=== PATIENT | female | born 1985 | race Two or more races ===

== ENCOUNTER → 2017-04-02 | Emergency (ER) | payer OTHER ==
[~2017-04-02] VITALS: Ht 154.9 cm; Wt 54.4 kg
[~2017-04-02] MED LIST: AMOX1TAB12 PO; KETO10TA2 PO; TUSSIONEX PENN115 ML PO; ZITHROMAX500 MG PO
== END | disposition home or self-care (01) ==
LOC: ER 08:09
DX: R05 Cough (principal)

== ENCOUNTER 2017-07-07 17:34 | Emergency (ER) | payer OTHER ==
[~2017-07-07] VITALS: Ht 154.9 cm; Wt 56.7 kg
== END 2017-07-07 21:07 | disposition home or self-care (01) ==
LOC: ER 17:34
DX: M54.2 Cervicalgia (principal); M75.51 Bursitis of right shoulder

== ENCOUNTER 2017-08-26 14:48 | Emergency (ER) | payer OTHER ==
[~2017-08-26] VITALS: Ht 154.9 cm; Wt 56.7 kg
== END 2017-08-26 22:03 | disposition home or self-care (01) ==
LOC: ER 14:48
DX: N83.291 Other ovarian cyst, right side (principal); R10.813 Right lower quadrant abdominal tenderness

== ENCOUNTER 2018-07-15 08:27 | Outpatient (CLI) | payer OTHER | END 2018-07-15 08:33 | disposition home or self-care (01) | LOC: RAD 08:27 | DX: J84.111 Idiopathic interstitial pneumonia, not otherwise specified (principal) ==

== ENCOUNTER 2018-11-30 08:45 | Outpatient (CLI) | payer OTHER | END 2018-11-30 08:49 | disposition home or self-care (01) | LOC: SONOGRAMA 08:45 → RAD 08:45 → SONOGRAMA 08:49 | DX: M75.81 Other shoulder lesions, right shoulder (principal) ==

== ENCOUNTER → 2022-01-23 | Emergency (ER) | payer OTHER ==
[~2022-01-23] VITALS: Ht 154.9 cm; Wt 54.4 kg
== END | disposition home or self-care (01) ==
LOC: ER 08:02
DX: U07.1 COVID-19 (principal); B34.9 Viral infection, unspecified

== ENCOUNTER 2023-10-16 19:09 | Emergency (ER) | payer OTHER ==
[~2023-10-16] VITALS: Ht 154.9 cm; Wt 52.6 kg
[2023-10-16] MEDS ORDERED: KETOROLAC TROMETHAMINE 30 MG VIAL IV ONE (19:45)
[2023-10-16] MEDS ORDERED: 0.9 % SODIUM CHLORIDE 500 ML IV ONE (19:45)
[2023-10-16] MEDS ORDERED: PROPOFOL 10,000 MCG/ML VIAL IV PUSH ONE (21:15)
[2023-10-16 22:00] LABS: HEMATOCRIT 38.2 % (36.0-45.00); HEMOGLOBIN 12.8 g/dL (12.0-15.00); MEAN CELL VOLUME 79.8 fL (80.00-100.00); MEAN CORPUSCULAR HEMOGLOBIN 26.7 pg (27.00-32.0); MEAN CORPUSCULAR HGB CONC 33.4 g/dl (32.0-36.0); PLATELET COUNT 235 K/uL (150-450); RED BLOOD COUNT 4.79 M/uL (4.00-6.00); RED CELL DISTRIBUTION WIDTH 14.5 % (11.5-14.5)
[2023-10-16 22:24] LABS: INR 1.01; PARTIAL THROMBOPLASTIN TIME 25.9 SECONDS (22.0-34.0); PROTHROMBIN TIME 10.6 SECONDS (9.0-11.5)
[2023-10-16 22:29] LABS: ALBUMIN 4.2 gm/dL (3.4-5.0); BILIRUBIN TOTAL 0.77 mg/dL (0.3-1.2); CALCIUM 9.2 mg/dL (8.5-10.1); CREATININE SERUM 0.74 mg/dL (0.55-1.02); GFR 87.37; GLOBULINA 4.7 G/DL (2.4-3.5); POTASSIUM 3.52 mEq/L (3.5-5.1); TOTAL PROTEIN 8.9 gm/dL (6.4-8.2)
[2023-10-16] MEDS ORDERED: OxyCODONE HCL/APAP UD (PERCOCET) PO ONE (23:00)
[2023-10-17] MEDS ORDERED: PROMETHAZINE HCL 50 MG/ML AMPUL IM STA (05:40)
[2023-10-17] MEDS ORDERED: MEPERIDINE HCL/PF 50 MG/ML VIAL IM STA (05:40)
[2023-10-17] MEDS ORDERED: KETOROLAC TROMETHAMINE 15 MG VIAL IV ONE (10:30)
[2023-10-17] MEDS ORDERED: PROPOFOL 10,000 MCG/ML VIAL IV ONE (10:45)
[2023-10-17] MEDS ORDERED: 0.9 % SODIUM CHLORIDE 1,000 ML IV ONE (10:45)
[2023-10-17] MEDS ORDERED: OxyCODONE HCL/APAP UD (PERCOCET) PO ONE (13:00)
== END 2023-10-17 13:03 | disposition home or self-care (01) ==
LOC: ER 19:10
PROVIDERS: General Practice
DX: S82.851A Displaced trimalleolar fracture of right lower leg, initial encounter for closed fracture (principal); M25.572 Pain in left ankle and joints of left foot; M35.00 Sjogren syndrome, unspecified; W10.0XXA Fall (on)(from) escalator, initial encounter; Y93.89 Activity, other specified; Y92.018 Other place in single-family (private) house as the place of occurrence of the external cause; U07.1 COVID-19

== ENCOUNTER 2023-10-26 05:30 | Day surgery (SDC) | payer OTHER ==
[2023-10-20 10:34] LABS: HEMATOCRIT 37.5 % (36.0-45.00); HEMOGLOBIN 12.7 g/dL (12.0-15.00); MEAN CELL VOLUME 78.4 fL (80.00-100.00); MEAN CORPUSCULAR HEMOGLOBIN 26.6 pg (27.00-32.0); MEAN CORPUSCULAR HGB CONC 33.9 g/dl (32.0-36.0); PLATELET COUNT 225 K/uL (150-450); RED BLOOD COUNT 4.78 M/uL (4.00-6.00); RED CELL DISTRIBUTION WIDTH 14.9 % (11.5-14.5)
[2023-10-20 10:56] LABS: COL ADP 99 SECONDS (56-102); COL EPI 71 SECONDS (82-175)
[2023-10-20 11:12] LABS: INR < 0.93; PARTIAL THROMBOPLASTIN TIME 25.9 SECONDS (22.0-34.0); PROTHROMBIN TIME 9.8 SECONDS (9.0-11.5)
[2023-10-20 11:14] LABS: ALBUMIN 3.7 gm/dL (3.4-5.0); BILIRUBIN TOTAL 0.52 mg/dL (0.3-1.2); CALCIUM 9.3 mg/dL (8.5-10.1); CREATININE SERUM 0.54 mg/dL (0.55-1.02); GFR 125.68; GLOBULINA 4.5 G/DL (2.4-3.5); POTASSIUM 4.52 mEq/L (3.5-5.1); TOTAL PROTEIN 8.2 gm/dL (6.4-8.2)
[2023-10-20 11:18] LABS: PH,URINE 7.5 (5.0-8.0); URINE APPEARANCE Cloudy; URINE BILIRRUBIN Negative (NEGATIVE); URINE BLOOD Large; URINE COLOR Orange; URINE GLUCOSE Negative (NEGATIVE); URINE LEUKOCYTE Small; URINE NITRATE Negative; URINE PROTEIN Trace (NEGATIVE)
[2023-10-20 11:22] LABS: URINE BACTERIA 910.9 uL (0.0-1933); URINE EPITHELIAL CELLS 27.8 uL (0.0-38.8); URINE RBC 5432.9 uL (0.0-20.8); URINE WBC 36.7 uL (0.0-23.2)
[~2023-10-26] VITALS: Ht 152.4 cm; Wt 52.6 kg
[2023-10-26] MEDS ORDERED: CEFAZOLIN SODIUM 1,000 MG VIAL ONE (07:12)
[2023-10-26] MEDS ORDERED: BUPIVACAINE HCL/MPF 0.5% 30ML VIAL ONE (07:12)
[2023-10-26] MEDS ORDERED: ISOPROPYL ALCOHOL 30 ML OUNCE TOP SCH (09:00)
[2023-10-26] MEDS ORDERED: CEFAZOLIN SODIUM 1,000 MG VIAL IV SCH (09:00)
[2023-10-26] MEDS ORDERED: BUPIVACAINE HCL 30 ML VIAL IJ SCH (09:00)
[2023-10-26] MEDS ORDERED: SUGAMMADEX SODIUM 200 MG/2 ML VIAL IV ONE (11:45)
[2023-10-26] MEDS ORDERED: SUGAMMADEX SODIUM 200 MG/2 ML VIAL IV SCH (12:00)
[2023-10-27] MEDS ORDERED: ISOPROPYL ALCOHOL 30 ML OUNCE TOP SCH (12:00)
[2023-10-27] MEDS ORDERED: BUPIVACAINE HCL 30 ML VIAL IJ SCH (12:00)
[2023-10-27] MEDS ORDERED: CEFAZOLIN SODIUM 1,000 MG VIAL IV SCH (12:00)
== END 2023-10-26 16:20 | disposition home or self-care (01) ==
LOC: CIR.AMB 05:30
PROVIDERS: ATTEND Orthopaedic Surgery
DX: S82.871A Displaced pilon fracture of right tibia, initial encounter for closed fracture (principal); H52.209 Unspecified astigmatism, unspecified eye; H52.10 Myopia, unspecified eye
CPT/HCPCS: 27828; L8699

== ENCOUNTER 2023-11-12 14:05 | Outpatient (CLI) | payer OTHER | END 2023-11-12 14:10 | disposition home or self-care (01) | LOC: RAD 14:05 | PROVIDERS: ATTEND Orthopaedic Surgery | DX: S82.871D Displaced pilon fracture of right tibia, subsequent encounter for closed fracture with routine healing (principal) ==

== ENCOUNTER 2023-11-25 12:36 | Outpatient (CLI) | payer OTHER | END 2023-11-25 12:45 | disposition home or self-care (01) | LOC: RAD 12:36 | PROVIDERS: ATTEND Orthopaedic Surgery | DX: S82.871D Displaced pilon fracture of right tibia, subsequent encounter for closed fracture with routine healing (principal) ==

== ENCOUNTER 2023-12-24 13:42 | Outpatient (CLI) | payer OTHER | END 2023-12-24 13:43 | disposition home or self-care (01) | LOC: RAD 13:42 | PROVIDERS: ATTEND Orthopaedic Surgery | DX: S82.871D Displaced pilon fracture of right tibia, subsequent encounter for closed fracture with routine healing (principal) ==

== ENCOUNTER 2024-05-17 07:47 | Outpatient (CLI) | payer OTHER | END 2024-05-17 07:52 | disposition home or self-care (01) | LOC: RAD 07:47 | PROVIDERS: ATTEND Orthopaedic Surgery | DX: M79.604 Pain in right leg (principal); S82.871D Displaced pilon fracture of right tibia, subsequent encounter for closed fracture with routine healing; X58.XXXD Exposure to other specified factors, subsequent encounter ==

== ENCOUNTER 2024-05-31 13:00 | Outpatient (CLI) | payer OTHER | END 2024-05-31 13:01 | disposition home or self-care (01) | LOC: NUCLEAR 13:00 | PROVIDERS: ATTEND Orthopaedic Surgery | DX: M81.0 Age-related osteoporosis without current pathological fracture (principal) ==

== ENCOUNTER → 2024-07-28 07:43 | Outpatient (CLI) | payer OTHER | END | disposition home or self-care (01) | LOC: LAB 07:43 | PROVIDERS: ATTEND Orthopaedic Surgery | DX: E55.9 Vitamin D deficiency, unspecified (principal); M85.9 Disorder of bone density and structure, unspecified; E56.1 Deficiency of vitamin K ==